=== PATIENT | male | born 1985 | race Caucasian/White ===

== ENCOUNTER 2019-02-19 13:20 | Emergency (ER) | payer SELFPAY ==
[2019-02-19 14:19] LABS: Absolute Monocytes 0.5 K/uL (0.1-1.3); Absolute Neutrophil 4.9 K/uL (1.8-8.0); Basophils % 0.8 % (0-1.3); Eosinophils % 2.4 % (0-4.4); Hematocrit 43.1 % (39.6-49.0); Lymphocytes % 25.9 % (15.3-44.8); MPV 8.1 fL (7.6-11.3); Monocytes % 6.6 % (3.3-12.3); RBC Red Blood Cell Count 4.94 M/uL (4.33-5.43)
[2019-02-19] MEDS ORDERED: NA CHLORIDE 0.9% 1,000 ML ONE (15:27)
[2019-02-19 15:29] LABS: Barbiturates NEGATIVE (NEGATIVE); Benzodiazepines NEGATIVE (NEGATIVE); Cocaine NEGATIVE (NEGATIVE); METHAMPHETAM NEGATIVE (NEGATIVE); Methadone NEGATIVE (NEGATIVE); Opiates NEGATIVE (NEGATIVE); Phencyclidine NEGATIVE (NEGATIVE); THC Cannibis NEGATIVE (NEGATIVE)
[2019-02-19 15:52] LABS: Urine Blood NEGATIVE (NEG); Urine Glucose NEGATIVE (NEG); Urine Protein NEGATIVE (NEG); Urine Specific Gravity 1.025 (1.005-1.030)
--- NOTE | 2019-02-19 16:06 | ER ---
Nurse's Notes [facility] Name: Danis Bill Age: 33 yrs Sex: Male : 1985 Arrival Date: 02/19/2019 Time: 13:25 Bed 7 Private MD: Diagnosis: Rhabdomyolysis Presentation: 02/19 13:27 Presenting complaint: EMS states: pt complaining of "not feeling normal." with right sg sided headache that started about 1-2 days ago, pt denies any weakness or numbness, reports the sensation comes and goes in waves, denies N/V/D/Fever. Transition of care: patient was not received from another setting of care. Onset of symptoms was February 19, 2019. Risk Assessment: Do you want to hurt yourself or someone else? Patient reports no desire to harm self or others. Initial Sepsis Screen: Does the patient meet any 2 criteria? No. Patient's initial sepsis screen is negative. Does the patient have a suspected source of infection? No. Patient's initial sepsis screen is negative. Care prior to arrival: Medication(s) given: Normal saline infusion, 250 mL IV initiated. 20 GA, in the left antecubital area, Glucose check: 78. 13:27 Method Of Arrival: EMS: [facility] sg 13:27 Acuity: DEIDRA 3 sg Historical: - Allergies: 13:30 No Known Allergies; sg - Home Meds: 13:30 None [Active]; sg - PMHx: 13:30 Meningitis; sg - Immunization history:: Adult Immunizations up to date. - Social history:: Smoking status: Patient/guardian denies using tobacco. - Ebola Screening: : Patient negative for fever greater than or equal to 101.5 degrees Fahrenheit, and additional compatible Ebola Virus Disease symptoms Patient denies exposure to infectious person Patient denies travel to an Ebola-affected area in the 21 days before illness onset No symptoms or risks identified at this time. Screenin:30 Abuse screen: Denies threats or abuse. Denies injuries from another. Nutritional sg screening: No deficits noted. Tuberculosis screening: No symptoms or risk factors identified. Never had TB. Fall Risk None identified. Assessment: 13:30 General: Appears in no apparent distress. comfortable, well groomed, well developed, sg well nourished, Behavior is calm, cooperative, appropriate for age, quiet. Pain: Denies pain. Neuro: Reports dizziness, headache in right frontal area, reports dizziness to be intermittent. Cardiovascular: Capillary refill is brisk in bilateral fingers Patient's skin is warm and dry. Chest pain is denied. Respiratory: Airway is patent Respiratory effort is even, unlabored, Respiratory pattern is regular, symmetrical. GI: Abdomen is round non-distended, Reports normal bowel habits, tolerance of fluids, tolerance of food. : No signs and/or symptoms were reported regarding the genitourinary system. EENT: Oral mucosa is moist. Good dentition noted. Derm: Skin is pink, warm \\T\\ dry. EMS reports pt became diaphoretic and cold and clammy. Musculoskeletal: No signs and/or symptoms reported regarding the musculoskeletal system. 14:30 Reassessment: Patient appears in no apparent distress at this time. Patient and/or hb family updated on plan of care and expected duration. Pain level reassessed. Patient is alert, oriented x 3, equal unlabored respirations, skin warm/dry/pink. 15:30 Reassessment: Patient appears in no apparent distress at this time. No changes from hb previously documented assessment. Patient and/or family updated on plan of care and expected duration. Pain level reassessed. Patient is alert, oriented x 3, equal unlabored respirations, skin warm/dry/pink. 16:30 Reassessment: Patient appears in no apparent distress at this time. Patient and/or hb family updated on plan of care and expected duration. Pain level reassessed. Patient is alert, oriented x 3, equal unlabored respirations, skin warm/dry/pink. Discharge ordered, NS infusing at this time. Vital Signs: 13:29 BP 127 / 84; Pulse 77; Resp 17; Pulse Ox 99% on R/A; Pain 0/10; sg 13:32 Temp 97.6; sg 14:30 BP 120 / 86; Pulse 66 MON; Resp 18 S; Pulse Ox 98% on R/A; hb 16:00 BP 122 / 76; Pulse 81; Resp 15; Pulse Ox 99% on R/A; hb 17:00 BP 120 / 70; Pulse 77; Resp 16; Pulse Ox 100% on R/A; hb ED Course: 13:25 Patient arrived in ED. sg 13:27 Arm band placed on. sg 13:29 Triage completed. sg 13:30 Mota, Geo, MD is Attending Physician. gs 13:32 Maintain EMS IV. Dressing intact. Site clean \\T\\ dry. Gauge \\T\\ site: 20 LAC. IV is patent, sg is intact. 13:45 Felton Templeton, RN is Primary Nurse. sg 14:15 Initial lab(s) drawn, by me, sent to lab. sg 14:52 Notified ED physician of a critical lab result(s). CPK [id number]. ss 15:00 Patient has correct armband on for positive identification. Call light in reach. hb 17:16 No provider procedures requiring assistance completed. IV discontinued, intact, hb bleeding controlled, No redness/swelling at site. Pressure dressing applied. Administered Medications: 14:10 Drug: NS 0.9% 1000 ml Route: IV; Rate: 1 bolus; Site: left antecubital; sg 15:00 Follow up: Response: No adverse reaction; IV Status: Completed infusion; IV Intake: hb 1000ml 15:10 Drug: NS 0.9% 1000 ml Route: IV; Rate: 1 bolus; Site: left antecubital; hb 17:15 Follow up: Response: No adverse reaction; IV Status: Completed infusion; IV Intake: hb 1000ml Intake: 15:00 IV: 1000ml; Total: 1000ml. hb 17:15 IV: 1000ml; Total: 2000ml. hb Outcome: 16:06 Discharge ordered by . gs 17:16 Discharged to home ambulatory, with family. hb 17:16 Condition: stable 17:16 Discharge instructions given to patient, Instructed on discharge instructions, follow up and referral plans. medication usage, Demonstrated understanding of instructions, follow-up care, medications. 17:17 Patient left the ED. hb Signatures: Felton Templeton, JAYLENE RN Elidia Mcmahon RN RN Luh Roberto RN RN Geo Mota MD MD Corrections: (The following items were deleted from the chart) 17:07 13:32 BP 120 / 86; Pulse 66bpm; MonitorResp 18bpm; Spontaneous; Pulse Ox 98% RA; sg hb
--- NOTE | 2019-02-19 16:06 | EDPHYS ---
Physician Documentation [facility] Name: Danis Bill Age: 33 yrs Sex: Male : 1985 Arrival Date: 02/19/2019 Time: 13:25 Bed 7 Private MD: ED Physician Geo Mota HPI: 02/19 17:50 This 33 yrs old Male presents to ER via EMS with complaints of General gs Weakness, Doesn't Feel Right. 17:50 The patient presents to the emergency department with weakness of the. Onset: The gs symptoms/episode began/occurred today. Context: occurred at work. Associated signs and symptoms: Pertinent positives: chills, diaphoresis, weakness general, near syncope. Severity of symptoms: At their worst the symptoms were severe in the emergency department the symptoms have improved markedly. The patient has not experienced similar symptoms in the past. The patient has not recently seen a physician. Historical: - Allergies: 13:30 No Known Allergies; sg - Home Meds: 13:30 None [Active]; sg - PMHx: 13:30 Meningitis; sg - Immunization history:: Adult Immunizations up to date. - Social history:: Smoking status: Patient/guardian denies using tobacco. - Ebola Screening: : Patient negative for fever greater than or equal to 101.5 degrees Fahrenheit, and additional compatible Ebola Virus Disease symptoms Patient denies exposure to infectious person Patient denies travel to an Ebola-affected area in the 21 days before illness onset No symptoms or risks identified at this time. ROS: 17:50 All other systems are negative. gs 17:50 Neuro: Positive for headache, not severe not thunderclap. gs Exam: 16:05 ECG was reviewed by the Attending Physician. gs 17:50 Head/Face: Normocephalic, atraumatic. Eyes: Pupils equal round and reactive to light, gs extra-ocular motions intact. Lids and lashes normal. Conjunctiva and sclera are non-icteric and not injected. Cornea within normal limits. Periorbital areas with no swelling, redness, or edema. ENT: Nares patent. No nasal discharge, no septal abnormalities noted. Tympanic membranes are normal and external auditory canals are clear. Oropharynx with no redness, swelling, or masses, exudates, or evidence of obstruction, uvula midline. Mucous membranes moist. Neck: Trachea midline, no thyromegaly or masses palpated, and no cervical lymphadenopathy. Supple, full range of motion without nuchal rigidity, or vertebral point tenderness. No Meningismus. Chest/axilla: Normal chest wall appearance and motion. Nontender with no deformity. No lesions are appreciated. Cardiovascular: Regular rate and rhythm with a normal S1 and S2. No gallops, murmurs, or rubs. Normal PMI, no JVD. No pulse deficits. Respiratory: Lungs have equal breath sounds bilaterally, clear to auscultation and percussion. No rales, rhonchi or wheezes noted. No increased work of breathing, no retractions or nasal flaring. Abdomen/GI: Soft, non-tender, with normal bowel sounds. No distension or tympany. No guarding or rebound. No evidence of tenderness throughout. Back: No spinal tenderness. No costovertebral tenderness. Full range of motion. Skin: Warm, dry with normal turgor. Normal color with no rashes, no lesions, and no evidence of cellulitis. MS/ Extremity: Pulses equal, no cyanosis. Neurovascular intact. Full, normal range of motion. Neuro: Awake and alert, GCS 15, oriented to person, place, time, and situation. Cranial nerves II-XII grossly intact. Motor strength 5/5 in all extremities. Sensory grossly intact. Cerebellar exam normal. Normal gait. 17:50 Constitutional: The patient appears alert, awake. Vital Signs: 13:29 BP 127 / 84; Pulse 77; Resp 17; Pulse Ox 99% on R/A; Pain 0/10; sg 13:32 Temp 97.6; sg 14:30 BP 120 / 86; Pulse 66 MON; Resp 18 S; Pulse Ox 98% on R/A; hb 16:00 BP 122 / 76; Pulse 81; Resp 15; Pulse Ox 99% on R/A; hb 17:00 BP 120 / 70; Pulse 77; Resp 16; Pulse Ox 100% on R/A; hb MDM: 13:49 Patient medically screened. gs 17:50 Data reviewed: vital signs, nurses notes, lab test result(s), EKG. Counseling: I had a gs detailed discussion with the patient and/or guardian regarding: the historical points, exam findings, and any diagnostic results supporting the discharge/admit diagnosis, lab results, the need for outpatient follow up. Response to treatment: the patient's symptoms have markedly improved after treatment, the patient's condition has returned to base line. 02/19 13:50 Order name: CBC with Diff; Complete Time: 14:59 gs 02/19 13:50 Order name: Basic Metabolic Panel; Complete Time: 14:59 gs 02/19 13:50 Order name: CPK; Complete Time: 14:59 gs 02/19 13:50 Order name: Urine Drug Screen; Complete Time: 15:53 gs 02/19 15:19 Order name: Urine Dipstick--Ancillary (enter results); Complete Time: 15:53 bd 02/19 13:50 Order name: EKG; Complete Time: 13:51 gs 02/19 13:50 Order name: EKG - Nurse/Tech; Complete Time: 13:56 gs EC:05 Rate is 56 beats/min. Rhythm is regular. VA interval is normal. QRS interval is normal. gs T waves are Normal. No ST changes noted. Clinical impression: Normal ECG and Sinus bradycardia. Interpreted by me. Administered Medications: 14:10 Drug: NS 0.9% 1000 ml Route: IV; Rate: 1 bolus; Site: left antecubital; sg 15:00 Follow up: Response: No adverse reaction; IV Status: Completed infusion; IV Intake: hb 1000ml 15:10 Drug: NS 0.9% 1000 ml Route: IV; Rate: 1 bolus; Site: left antecubital; hb 17:15 Follow up: Response: No adverse reaction; IV Status: Completed infusion; IV Intake: hb 1000ml Disposition: 02/19/19 16:06 Discharged to Home. Impression: Rhabdomyolysis. - Condition is Stable. - Discharge Instructions: Rhabdomyolysis. - Work release form, Medication Reconciliation Form, Thank You Letter, Antibiotic Education, Prescription Opioid Use form. - Follow up: Private Physician; When: 1 - 2 days; Reason: Recheck today's complaints, Re-evaluation by your physician. Signatures: Dispatcher [employer] Felton Kimble RN RN Luh Roberto RN RN hb Starr, Gregory, MD MD gs Corrections: (The following items were deleted from the chart) 17:17 16:06 02/19/2019 16:06 Discharged to Home. Impression: Rhabdomyolysis. Condition is hb Stable. Forms are Medication Reconciliation Form, Thank You Letter, Antibiotic Education, Prescription Opioid Use. Follow up: Private Physician; When: 1 - 2 days; Reason: Recheck today's complaints, Re-evaluation by your physician. gs
--- NOTE | 2019-02-20 07:14 | EKG ---
Test Date: 2019-02-19 Test Time: 14:07:19 Management Trainee Marketing: BE MEASUREMENT RESULTS: Intervals: Rate: 56 CA: 164 QRSD: 86 QT: 434 QTc: 418 [place]: P: 50 CA: 164 QRS: 37 T: 21 INTERPRETIVE STATEMENTS: Sinus bradycardia Otherwise normal ECG No previous ECG available for comparison Electronically Signed On 02-20-19 07:13:41 CDT by Carl Liang
== END 2019-02-19 17:17 | disposition home or self-care (01) ==
LOC: ER 13:20
DX: M62.82 Rhabdomyolysis (principal)
CPT/HCPCS: 36415; 80048; 80307; 81003; 82550; 85025; 93005; 96360; 96361; 99284; J7030